=== PATIENT | female | born 1975 | race American Indian/Alaskan Native ===

== ENCOUNTER 2021-10-14 01:16 | Emergency (ER) | payer SELFPAY ==
[2021-10-14] MEDS ORDERED: PANTOPRAZOLE 40 MG TAB PO ONE (01:43)
[2021-10-14] MEDS ORDERED: ACETAMINOPHEN 325 MG TAB PO ONE (01:43)
--- NOTE | 2021-10-14 01:44 | Emergency Department Report ---
ED General Adult HPI - General Chief complaint: Chest Pain Stated complaint: CHEST PAIN Time Seen by Provider: 10/14/21 01:36 Source: patient, EMS ( EMS documentation not available at time of chart dictation ), RN notes reviewed Mode of arrival: Stretcher Limitations: No Limitations - History of Present Illness Initial comments: This patient is a pleasant and cooperative 46-year-old female who states that she is not , presenting to the ER with a complaint of anterior chest wall pain which started approximately 10:00 PM. The pain does not radiate to the back, arms or neck. There is no vomiting, diaphoresis or exertional shortness of breath. There is no leg pain or leg swelling, patient denies oral contraceptive use, travel, DVT/PE risk factors. No personal family history of DVT, PE, ACS that she is aware of. -: Sudden Location: chest Consistency: constant Improves with: none Worsens with: other (Pain increases with palpation of the anterior chest) - Related Data Previous Rx's Medication Instructions Recorded Last Taken Type Acetaminophen [Non-Aspirin Extra 500 mg PO Q6HR PRN #30 tablet 10/14/21 Unknown Rx Strength] Ibuprofen [Motrin] 600 mg PO Q8H PRN #30 tablet 10/14/21 Unknown Rx Allergies Allergy/AdvReac Type Severity Reaction Status Date / Time No Known Allergies Allergy Unverified 10/14/21 01:28 ED Review of Systems ROS: Stated complaint: CHEST PAIN Other details as noted in HPI Comment: All other systems reviewed and negative Cardiovascular: other (Anterior chest wall pain) ED Past Medical Hx - Past Medical History Previous Medical History?: No - Social History Smoking Status: Never Smoker Substance Use Type: None - Medications Home Medications: Home Medications Medication Instructions Recorded Confirmed Last Taken Type Acetaminophen [Non-Aspirin Extra 500 mg PO Q6HR PRN #30 tablet 10/14/21 Unknown Rx Strength] Ibuprofen [Motrin] 600 mg PO Q8H PRN #30 tablet 10/14/21 Unknown Rx ED Physical Exam - General Limitations: No Limitations General appearance: alert, in no apparent distress - Head Head exam: Present: atraumatic, normocephalic - Eye Eye exam: Present: normal appearance, EOMI. Absent: nystagmus - ENT ENT exam: Present: normal exam, normal orophraynx, mucous membranes moist, norm al external ear exam - Neck Neck exam: Present: normal inspection, full ROM. Absent: tenderness, meningismus - Respiratory Respiratory exam: Present: normal lung sounds bilaterally. Absent: respiratory distress, wheezes, rales, rhonchi, stridor, decreased breath sounds - Cardiovascular Cardiovascular Exam: Present: regular rate, normal rhythm, normal heart sounds. Absent: bradycardia, tachycardia, irregular rhythm, systolic murmur, diastolic murmur, rubs, gallop - GI/Abdominal GI/Abdominal exam: Present: soft. Absent: distended, tenderness, guarding, rebound, rigid, pulsatile mass - Extremities Exam Extremities exam: Present: normal inspection, full ROM, other (2+ pulses noted in the bilateral upper and lower extremities. There is no palpable cord. negative Homans sign. Muscular compartments are soft. The pelvis is stable.). Absent: pedal edema, calf tenderness - Back Exam Back exam: Present: normal inspection, full ROM. Absent: tenderness, CVA tenderness (R), CVA tenderness (L), paraspinal tenderness, vertebral tenderness - Neurological Exam Neurological exam: Present: alert, oriented X3, other (No facial droop. Tongue midline. Extraocular movements intact bilaterally. Facial sensation intact to light touch in V1, V2, V3 distribution bilaterally. 5 and a 5 strength in 4 extremities. Sensation intact to light touch in 4 extremities.). Absent: motor sensory deficit - Psychiatric Psychiatric exam: Present: anxious - Skin Skin exam: Present: warm, dry, intact, normal color. Absent: rash ED Course Vital Signs 10/14/21 10/14/21 10/14/21 01:21 02:00 02:09 Temperature 98.6 F Pulse Rate 104 H 89 Respiratory 16 14 14 Rate Blood Pressure 119/78 Blood Pressure 133/79 [Left] O2 Sat by Pulse 99 100 Oximetry 10/14/21 10/14/21 10/14/21 02:15 02:31 02:45 Temperature Pulse Rate 80 87 Respiratory 20 13 20 Rate Blood Pressure 133/79 126/81 137/80 Blood Pressure [Left] O2 Sat by Pulse 100 100 100 Oximetry 10/14/21 10/14/21 10/14/21 03:01 03:09 03:15 Temperature Pulse Rate Respiratory 19 18 18 Rate Blood Pressure 117/81 113/78 Blood Pressure [Left] O2 Sat by Pulse 100 99 Oximetry 10/14/21 10/14/21 03:31 03:38 Temperature Pulse Rate Respiratory 17 18 Rate Blood Pressure 116/65 Blood Pressure [Left] O2 Sat by Pulse 99 Oximetry - Reevaluation(s) Reevaluation #1: 10/14/21 03:24 Differential diagnosis, including but not limited to: GERD, gastritis, costochondritis, hiatal hernia, pneumonia, coronary artery disease Assessment and plan: 46-year-old female, who is not currently tachycardic, tachypneic or hypoxic, who denies DVT and pulmonary embolism risk factors, who is low risk by Wells criteria for pulmonary embolism, EKG unremarkable x1, troponin negative x1, low risk for major adverse cardiac event as per heart score Patient has equal pulses in the upper and lower extremities, no pulsatile abdominal mass, and an unremarkable x-ray of the chest, therefore, aortic disease is very unlikely. Patient at low risk for major adverse cardiac event as per heart score. Has reproducible chest wall tenderness Check EKG x2, troponin x2. Treat supportively and symptomatically. Advised patient that she is at low risk for major adverse cardiac event as per heart score. Should ER diagnostic work-up proved to be unremarkable, recommend outpatient follow-up with primary care or cardiology for nonspecific chest wall pain. 10/14/21 04:19 EKG #2 unchanged from prior. Troponin negative x1. Troponin #2 pending. Patient reassessed. Endorses improvement in symptoms. Smiling and appears to be in good spirits. Patient updated as to the plan of care. Awaiting repeat laboratory studies. Reevaluation #2: 10/14/21 05:04 Final reassessment. Feels improved. Troponin negative x2. Resting comfortably in stretcher. No acute distress. Discharged with outpatient follow-up ED Medical Decision Making - Lab Data Result diagrams: 10/14/21 01:51 10/14/21 01:51 Vital Signs 10/14/21 10/14/21 10/14/21 01:21 02:00 02:09 Temperature 98.6 F Pulse Rate 104 H 89 Respiratory 16 14 14 Rate Blood Pressure 119/78 Blood Pressure 133/79 [Left] O2 Sat by Pulse 99 100 Oximetry Lab Results 10/14/21 10/14/21 10/14/21 Range/Units 01:51 01:51 01:51 Hgb 11.9 (10.1-14.3) gm/dl Hct 34.9 (30.3-42.9) % PT 12.4 (12.2-14.9) Sec. INR 0.84 L (0.87-1.13) Sodium 136 L (137-145) mmol/L Potassium 4.5 (3.6-5.0) mmol/L Chloride 100.8 (98-107) mmol/L Carbon Dioxide 25 (22-30) mmol/L Anion Gap 15 mmol/L BUN 13 (7-17) mg/dL Creatinine 0.8 (0.6-1.2) mg/dL Estimated GFR > 60 ml/min BUN/Creatinine Ratio 16 % Glucose 92 (65-100) mg/dL Calcium 8.7 (8.4-10.2) mg/dL Troponin T < 0.010 (0.00-0.029) ng/mL - EKG Data -: EKG Interpreted by Pr EKG shows normal: sinus rhythm Rate: normal - EKG Data When compared to previous EKG there are: previous EKG unavailable 10/14/21 03:13 The EKG is interpreted at 1: 40 7 AM Sinus rhythm, 83 bpm. Normal axis, normal intervals, normal P wave axis. Unremarkable EKG. Not a STEMI. - Radiology Data Radiology results: pending, report reviewed, image reviewed CHEST 1 VIEW INDICATION / CLINICAL INFORMATION: chest wall pain. COMPARISON: None available. FINDINGS: SUPPORT DEVICES: None. HEART / MEDIASTINUM: No significant abnormality. LUNGS / PLEURA: No significant pulmonary abnormality. BONES: No significant osseous abnormality. ADDITIONAL FINDINGS: No significant additional findings. IMPRESSION: 1. No active cardiopulmonary disease. Signer Name: Levon Severino II, MD Signed: 10/14/2021 1:04 AM Workstation Name: [id number] Critical care attestation.: If time is entered above; I have spent that time in minutes in the direct care of this critically ill patient, excluding procedure time. ED Disposition Clinical Impression: Chest wall pain Disposition: 01 HOME / SELF CARE / HOMELESS Is pt being admited?: No Does the pt Need Aspirin: No Condition: Stable Instructions: Costochondritis Additional Instructions: Please take the prescribed pain medications as needed and directed. Follow-up with a primary care doctor or biometrics technician in the next 3 to 5 days. Advance diet as tolerated, drink plenty of fluids, alternate ice packs and heat packs as needed for physical pain, avoid consumption of alcohol, tobacco, smoke produ cts, heavy and spicy foods. When taking ibuprofen, make certain to take with a meal. Avoid heavy lifting and strenuous physical activity. Please return to the emergency room right away with new pain, worsened pain, migration of pain, projectile vomiting, change in mental status, confusion, inability tolerate liquid feeds, new, worsened or different symptoms not present on the initial emergency room evaluation Prescriptions: Ibuprofen [Motrin] 600 mg PO Q8H PRN #30 tablet PRN Reason: Pain Acetaminophen [Non-Aspirin Extra Strength] 500 mg PO Q6HR PRN #30 tablet PRN Reason: Pain , Severe (7-10) Referrals: [facility] [Provider Group] - 3-5 Days [facility] [Provider Group] - 3-5 Days Forms: Work/School Release Form(ED) Heart Score - HEART Score History: Slightly suspicious EKG: Non-specific Age: < 45 Risk factors: 1-2 risk factors Troponin: < normal limit HEART Score: 2 - EKG Read Time Time EKG Completed: 01:47 EKG Read Time: 01:47 - Critical Actions Critical Actions: 0-3 pts:0.9-1.7%risk of adverse cardiac event.Candidate for discharge
--- NOTE | 2021-10-14 02:08 | XRay Report ---
CHEST 1 VIEW INDICATION / CLINICAL INFORMATION: chest wall pain. COMPARISON: None available. FINDINGS: SUPPORT DEVICES: None. HEART / MEDIASTINUM: No significant abnormality. LUNGS / PLEURA: No significant pulmonary abnormality. BONES: No significant osseous abnormality. ADDITIONAL FINDINGS: No significant additional findings. IMPRESSION: 1. No active cardiopulmonary disease. Signer Name: Levon Severino II, MD Signed: 10/14/2021 2:04 AM Workstation Name: [id number]
[2021-10-14 02:39] LABS: BUN/Creatinine Ratio 16; Blood Urea Nitrogen 13 mg/dL (7-17); Calcium 8.7 mg/dL (8.4-10.2); Hemolysis Index 9
[2021-10-14 02:40] LABS: Hematocrit 34.9 % (30.3-42.9); Hemoglobin 11.9 gm/dl (10.1-14.3)
[2021-10-14 02:51] LABS: INR 0.84 (0.87-1.13)
[2021-10-14] MEDS ORDERED: IBUPROFEN 400 MG TAB PO ONE (03:12)
[2021-10-14 05:49] VITALS: BP 108/66
--- NOTE | 2021-10-15 10:46 | Electrocardiograph Report ---
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
--- NOTE | 2021-10-15 10:46 | Electrocardiograph Report ---
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
== END 2021-10-14 05:45 | disposition home or self-care (01) ==
LOC: ED 01:16
DX: R07.9 Chest pain, unspecified (principal)
CPT/HCPCS: 36415; 71045; 80048; 84484; 85014; 85018; 85610; 93005; 99284